=== PATIENT | male | born 1990 | race Two or more races ===

== ENCOUNTER 2017-01-17 13:58 | Emergency (ER) | payer SELFPAY ==
[2017-01-17 14:05] VITALS: BP 123/94; PULSE 87; TEMP 98.2; BMI 39.9
[2017-01-17] MEDS ORDERED: KETOROLAC TROMETHAMINE 60 MG/2 ML VIAL IM ONE (14:46)
--- NOTE | 2017-01-17 14:48 | PDOC ---
History of Present Illness - General Chief Complaint: Pain Stated Complaint: LEG PAIN (RT SIDE) Time Seen by Provider: 01/17/17 14:26 - History of Present Illness Initial Comments: 01/17/17 14:47 CHIEF COMPLAINT: right calf pain HISTORY OF PRESENT ILLNESS: 26 yo M with hx of sciatica presents to ED with right calf pain x 3 weeks. Patient states he has taken ibuprofen and "some pain medication from the pharmacy" but is unsure of what. He reports he pain as a shooting pain that starts in his calf and sometimes goes down to his ankle or up to his thigh. He denies any lower back pain and denies any loss of sensation to his legs or any loss of bowel or bladder function. PAST MEDICAL HISTORY: Denies past medical history FAMILY HISTORY: Denies SOCIAL HISTORY: Denies tobacco, alcohol, illicit drug use. SURGICAL HISTORY: Denies ALLERGIES: No known drug allergies REVIEW OF SYSTEMS General/Constitutional: Denies fever or chills. Denies weakness, weight change. HEENT: Denies change in vision. Denies ear pain or discharge. Denies sore throat. Cardiovascular: Denies chest pain or shortness of breath. Respiratory: Denies cough, wheezing, or hemoptysis. Gastrointestinal: Denies nausea, vomiting, diarrhea or constipation. Denies rectal bleeding. Genitourinary: Denies dysuria, frequency, or change in urination. Musculoskeletal: Right calf pain. Skin and breasts: Denies rash or easy bruising. Neurologic: Denies headache, vertigo, loss of consciousness, or loss of sensation. PHYSICAL EXAM General Appearance: Well-appearing, appropriately dressed. No apparent distress. Respiratory/Chest: Lungs CTAB. Cardiovascular: RRR. S1, S2. Vascular Pulses: Dorsalis-Pedis (R): 2+, Dorsalis-Pedis (L): 2+ Musculoskeletal/Extremities: No erythema, edema, or warmth to R calf. No appreciable tenderness to R calf with palpation on exam, negative Fraser test. Normal inspection. FROM of all extremities, normal capillary refill. Pelvis Stable. No CVA tenderness. No tenderness to extremities, pedal edema, swelling, erythema or deformity. Integumentary: Appropriate color, dry, warm. No cyanosis, erythema, jaundice or rash Neurologic: [employer] manager II-XII intact. Fully oriented, alert. Appropriate mood/affect. Motor strength 5/5. No appreciable EOM palsy, facial droop or sensory deficit. Past History - Past Medical History Allergies/Adverse Reactions: Allergies Allergy/AdvReac Type Severity Reaction Status Date / Time No Known Allergies Allergy Verified 01/17/17 14:05 Home Medications: Ambulatory Orders Naproxen [Naprosyn -] 250 mg PO BID #14 tablet 01/17/17 Other medical history: NONE - Psycho/Social/Smoking Cessation Hx Anxiety: No Suicidal Ideation: No Smoking Status: No Smoking History: Never smoked Number of Cigarettes Smoked Daily: 0 Hx Alcohol Use: Yes (SOCIAL) Drug/Substance Use Hx: No Substance Use Type: None *Physical Exam - Vital Signs Last Vital Signs Temp Pulse Resp BP Pulse Ox 98.2 F 87 20 123/94 97 01/17/17 14:01 01/17/17 14:01 01/17/17 14:01 01/17/17 14:01 01/17/17 14:01 Medical Decision Making - Medical Decision Making 01/17/17 15:14 26 yo M with hx of sciatica presents to ED with right calf pain x 3 weeks. DVT considered but inconsistent with presentation; no tenderness, swelling, erythema, or warmth appreciated to affected leg. Patient does not have risk factors other than obesity. Calf pain most likely secondary to muscle strain. -60 mg IM Toradol Script for naproxen sent to pharm. Advised patient to take meds as prescribed and follow up with orthopedics by the end of next week if symptoms continue. Advised patient of signs and symptoms for return to ER; patient verbalized understanding and agrees to plan. *DC/Admit/Observation/Transfer Diagnosis at time of Disposition: Right calf pain - Discharge Dispostion Disposition: HOME Condition at time of disposition: Stable Admit: No - Prescriptions Prescriptions: Naproxen [Naprosyn -] 250 mg PO BID #14 tablet - Referrals Referrals: Gregg Connelly MD [Primary Care Provider] - Mendez Murray MD [Staff Physician] - - Patient Instructions Printed Discharge Instructions: DI for Calf Muscle Strain Additional Instructions: Please take medication as prescribed and follow up with orthopedics as discussed. If you experience any loss of sensation, numbness, or tingling to your legs, or are unable to bear weight on your leg, or develop any new or worsening symptoms, please return to the ER.
[2017-01-17] MEDS ORDERED: KETOROLAC TROMETHAMINE 60 MG/2 ML VIAL ONE (14:49)
== END 2017-01-17 15:26 | disposition home or self-care (01) ==
LOC: JERFT 13:58
PROC: 3E0233Z Introduction of Anti-inflammatory into Muscle, Percutaneous Approach (ICD-10-PCS; principal; 2017-01-17)
DX: S86.111A Strain of other muscle(s) and tendon(s) of posterior muscle group at lower leg level, right leg, initial encounter (principal); X58.XXXA Exposure to other specified factors, initial encounter; Y93.9 Activity, unspecified; Y92.89 Other specified places as the place of occurrence of the external cause
CPT/HCPCS: 99281-25

== ENCOUNTER 2017-01-31 13:30 | Emergency (ER) | payer SELFPAY ==
[2017-01-31 13:37] VITALS: BP 152/78; PULSE 76; TEMP 97.6; BMI 39.9
--- NOTE | 2017-01-31 14:41 | PDOC ---
History of Present Illness - General Chief Complaint: Pain Stated Complaint: RT LEG PAIN Time Seen by Provider: 01/31/17 13:53 History Source: Patient Exam Limitations: No Limitations - History of Present Illness Initial Comments: 01/31/17 14:37 26-year-old male presents to the ED with complaints of intermittent right leg pain which he states is worse with ambulation and feels like a tightness to the right hamstring and right calf. Patient denies imaging or injury to this affected extremity. Patient states was here about a month ago and was given Naprosyn 250 which she states did alleviate his discomfort initially but now returned and is requesting something different. Patient denies history of sedentary lifestyle smoking history, or clotting disorders. Patient denies chest pain, shortness of breath, lower extremity edema, or sensory changes distal of affected area. Timing/Duration: intermittent Severity: mild Associated Symptoms: reports: denies symptoms Past History - Past Medical History Allergies/Adverse Reactions: Allergies Allergy/AdvReac Type Severity Reaction Status Date / Time No Known Allergies Allergy Verified 01/31/17 13:37 Home Medications: Ambulatory Orders NK [No Known Home Medication] 01/31/17 Other medical history: NONE - Psycho/Social/Smoking Cessation Hx Anxiety: No Suicidal Ideation: No Smoking Status: No Smoking History: Never smoked Number of Cigarettes Smoked Daily: 0 Hx Alcohol Use: Yes (RARE) Drug/Substance Use Hx: No Substance Use Type: None Patient Lives Alone: No Lives with/in: parents Review of Systems - Review of Systems Able to Perform ROS?: Yes Constitutional: No: Symptoms Reported Musculoskeletal: Yes: Muscle Pain (right hamstring/ right calf) Integumentary: No: Symptoms Reported Neurological: No: Symptoms reported *Physical Exam - Vital Signs Last Vital Signs Temp Pulse Resp BP Pulse Ox 97.6 F 76 20 152/78 98 01/31/17 13:34 01/31/17 13:34 01/31/17 13:34 01/31/17 13:34 01/31/17 13:34 - Physical Exam General Appearance: Yes: Nourished, Appropriately Dressed. No: Apparent Distress HEENT: positive: EOMI Respiratory/Chest: positive: Lungs Clear, Normal Breath Sounds. negative: Respiratory Distress, Accessory Muscle Use Vascular Pulses: Dorsalis-Pedis (R): 1+ Extremity: positive: Normal Capillary Refill, Normal Inspection, Normal Range of Motion, Other (negative Homans). negative: Tender, Pedal Edema, Calf Tenderness Integumentary: positive: Normal Color, Warm, Moist Neurologic: positive: Motor Strength 5/5 (ambulatory) ED Treatment Course - RADIOLOGY Radiology Studies Ordered: Category Date Time Status DUPLEX VASCUL US-1 LEG [US] Stat Ultrasound 01/31/17 14:21 Ordered Medical Decision Making - Medical Decision Making 01/31/17 14:40 Patient complains of subjective pain to his right hamstring her right calf despite taking Naprosyn 250 that he was prescribed here 1 month ago. Patient exhibited no reproducible pain but clearly points to his right calf and hamstring without tenderness to the posterior patellar region. No palpable mass , skin intact, and 2+ pulses distally. Patient was ordered for an ultrasound and will consider disposition once resulted. 01/31/17 15:14 Duplex negative for acute findings. Patient will be discharged home to take Motrin for discomfort and follow-up with his PCP *DC/Admit/Observation/Transfer Diagnosis at time of Disposition: Lower extremity pain, posterior Qualifiers: Laterality: right Qualified Code(s): M79.604 - Pain in right leg - Discharge Dispostion Disposition: HOME Condition at time of disposition: Good - Referrals Referrals: Gregg Connelly MD [Primary Care Provider] - - Patient Instructions Printed Discharge Instructions: DI for Leg Pain Additional Instructions: Please perform stretching exercises to alleviate your discomfort. May apply heating pad to the affected area and massage. May take Motrin 600 mg for discomfort. Follow-up with your PCP
== END 2017-01-31 15:18 | disposition home or self-care (01) ==
LOC: JERFT 13:30
DX: M79.604 Pain in right leg (principal)
CPT/HCPCS: 93971-TC; 99281-25

== ENCOUNTER 2020-10-11 16:28 | Emergency (ER) | payer OTHER ==
[2020-10-11 17:04] VITALS: BP 130/80; PULSE 114; TEMP 98.5; BMI 41.2
[2020-10-11] MEDS ORDERED: ACETAMINOPHEN 500 MG TABLET (FP) PO ONE (17:46)
[2020-10-11] MEDS ORDERED: ACETAMINOPHEN 325 MG TABLET (FP) ONE (17:52)
== END 2020-10-11 19:10 | disposition home or self-care (01) ==
LOC: JER 16:28
DX: U07.1 COVID-19 (principal)
CPT/HCPCS: 71046-TC-FY; 99284-25; C9803; U0003

== ENCOUNTER 2023-04-21 11:32 | Emergency (ER) | payer OTHER ==
[2023-04-21 11:37] VITALS: BP 121/82; PULSE 105; RESP 18; TEMP 97.6; BMI 40.5
[2023-04-21] MEDS ORDERED: IBUPROFEN 600 MG TABLET (FP) PO ONE ×2 (11:59→12:17)
== END 2023-04-21 12:52 | disposition home or self-care (01) ==
LOC: JERFT 11:32
DX: S93.491A Sprain of other ligament of right ankle, initial encounter (principal); M25.571 Pain in right ankle and joints of right foot; M25.471 Effusion, right ankle; X58.XXXA Exposure to other specified factors, initial encounter; Y93.9 Activity, unspecified; Y92.9 Unspecified place or not applicable
CPT/HCPCS: 73610-TC-RT-FY; 73630-TC-RT-FY; 99283-25

== ENCOUNTER 2023-06-12 00:55 | Emergency (ER) | payer OTHER ==
[2023-06-12 01:08] VITALS: BP 137/90; PULSE 98; RESP 19; TEMP 98.9; BMI 39.9
== END 2023-06-12 02:03 | disposition home or self-care (01) ==
LOC: JER 00:55
DX: R19.7 Diarrhea, unspecified (principal)
CPT/HCPCS: 99282-25

== ENCOUNTER 2023-06-18 10:29 | Emergency (ER) | payer OTHER ==
[2023-06-18 10:33] VITALS: BP 101/77; PULSE 105; RESP 18; TEMP 97.8; BMI 42.1
[2023-06-18] MEDS ORDERED: METOCLOPRAMIDE HCL INJECTION 10 MG/2 ML VIAL IVPUSH ONE (12:22)
[2023-06-18] MEDS ORDERED: ACETAMINOPHEN 1000 MG/100 ML BAG IVPB ONE (12:23)
[2023-06-18] MEDS ORDERED: METOCLOPRAMIDE HCL INJECTION 10 MG/2 ML VIAL ONE (12:29)
[2023-06-18] MEDS ORDERED: ACETAMINOPHEN INJECTION 100 ML IVPB ONE (12:29)
[2023-06-18 13:21] LABS: BASO % 0.5 % (0-2.0); EOS % 0.7 % (0-4.5); HEMATOCRIT 46.8 % (35.4-49); HEMOGLOBIN 15.8 GM/dL (11.7-16.9); LYMPH % 10.6 % (8-40); MCH 25.8 pg (25.7-33.7); MCHC 33.8 g/dl (32.0-35.9); MEAN CELL VOLUME 76.4 fl (80-96); MEAN PLT VOLUME 9.2 fl (7.5-11.1); MONO % 5.5 % (3.8-10.2); NEUT % 82.7 % (42.8-82.8); PLATELET COUNT 309 10^3/uL (134-434); RBC 6.12 M/mm3 (4.00-5.60); WHITE BLOOD COUNT 14.6 K/mm3 (4.0-10.0)
[2023-06-18 13:43] LABS: POTASSIUM 4.3 mmol/L (3.5-5.1)
[2023-06-18 13:45] LABS: CALCIUM 9.7 mg/dL (8.5-10.1)
[2023-06-18 13:46] LABS: ALBUMIN 4.2 g/dl (3.4-5.0); BLOOD UREA NITROGEN 12.5 mg/dL (7-18)
[2023-06-18 13:48] LABS: CREATININE 1.1 mg/dL (0.55-1.3)
[2023-06-18 13:50] LABS: BILIRUBIN,TOTAL 0.7 mg/dL (0.2-1); TOT PROT 8.8 g/dl (6.4-8.2)
== END 2023-06-18 18:31 | disposition home or self-care (01) ==
LOC: JER 10:29
PROC: 3E033NZ Introduction of Analgesics, Hypnotics, Sedatives into Peripheral Vein, Percutaneous Approach (ICD-10-PCS; principal; 2023-06-18)
PROC: 3E033GC Introduction of Other Therapeutic Substance into Peripheral Vein, Percutaneous Approach (ICD-10-PCS; 2023-06-18)
DX: R10.30 Lower abdominal pain, unspecified (principal); R11.2 Nausea with vomiting, unspecified; R10.11 Right upper quadrant pain; K52.9 Noninfective gastroenteritis and colitis, unspecified; K56.0 Paralytic ileus
CPT/HCPCS: 36415; 74177-TC; 74190-TC-FY; 76705-TC; 80053; 82150; 83605; 83690; 85025; 99285-25; Q9967